=== PATIENT | female | born 1995 | race Hispanic/Latino ===

== ENCOUNTER → 2020-09-26 | Day surgery (SDC) | payer BC ==
[~2020-09-26] MED LIST: FENTANYL CITRATE/PF 100MCG/2 ML INJ ONE; HYDROXYCHLOROQ200 MG PO; HYOSCYAMINE SULFATE 0.5 MG/ML INJ ONE; LIDOCAINE HCL 2% LOCAL INJ 5 ML SDV VIAL INJ ONE; MIDAZOLAM HCL 2 MG/2 ML VIAL ONE; PROPOFOL IV EMULSION 10 MG/ML 20 ML VIAL ONE
[2020-09-26 15:55] VITALS: BP 112/78
== END | disposition home or self-care (01) ==
LOC: OR 12:48
PROVIDERS: ATTEND Internal Medicine Gastroenterology
DX: K62.5 Hemorrhage of anus and rectum (principal); K60.2 Anal fissure, unspecified; K64.8 Other hemorrhoids; M32.9 Systemic lupus erythematosus, unspecified; Z01.812 Encounter for preprocedural laboratory examination; Z20.822 Contact with and (suspected) exposure to COVID-19
CPT/HCPCS: 45378; 81025; J1980; J2001; J2704; U0002 ×2; J2250; J3010